=== PATIENT | female | born 1990 | race Caucasian/White ===

== ENCOUNTER 2017-03-29 01:25 | Emergency (ER) | payer SELFPAY ==
--- NOTE | ~2017-03-29 | ER ---
PATIENT'S NAME: SAMMI SANTOS [facility] AGE: 27 Y [address] ROOM: [place] [address] LOCATION: [facility] ADMIT DATE: 03/29/2017 ER/Outpatient Report DISCHARGE DATE: FAMILY PHYSICIAN: Binh Calderon MD ATTENDING PHYSICIAN: Barney Tam Admission date and time are documented in the medical record. I saw the patient at 0140 hours. CHIEF COMPLAINT: Irregular slow heart rate. HISTORY OF PRESENT ILLNESS: This patient is a 27-year-old female who about 35 minutes prior to admission in the emergency room noticed that she had an irregular slow heart rate. She had accompanying nausea, shortness of breath, and generalized weakness. No headache, eyes, ears, nose, throat, neck, or spine pain. No chest pain. Just shortness of breath when she was standing. No abdominal pain. No vomiting or diarrhea. No urinary frequency, urgency, or dysuria. No lightheadedness, dizziness, syncope, or near syncope. No fall or trauma. No recent colds, coughs, flus, fever, chills, or sweats. Does have a history of slight low calcium, is on calcium supplementation, calcium gluconate. She has some mood problems, but no other psych issues. No neuro changes or endocrine problems. HOME MEDICATIONS: See attached medication list. ALLERGIES: SULFA. SOCIAL HISTORY: The patient smokes half-a-pack of cigarettes a day. Occasional intake of alcohol. SIGNIFICANT PAST MEDICAL HISTORY: Hypertension, tobacco abuse, exogenous obesity, bipolar disorder with anxiety, depression, reactive airway disease, and mild hypokalemia. OPERATIONS: Tonsillectomy. REVIEW OF SYSTEMS: All systems reviewed by me are negative with the exception of those discussed in the history of present illness. PATIENT'S NAME: SAMMI SANTOS [facility] AGE: 27 Y [address] ROOM: [place] [address] LOCATION: [facility] ADMIT DATE: 03/29/2017 ER/Outpatient Report DISCHARGE DATE: FAMILY PHYSICIAN: Binh Calderon MD ATTENDING PHYSICIAN: Barney Tam PHYSICAL EXAMINATION: VITAL SIGNS: Temperature 97.7, pulse 90, respirations 20, blood pressure 158/113, and O2 sat on room air is 98%. Jaren Coma Scale was 15. HEAD: Normocephalic. EYES: Extraocular muscles intact. PERRL. EARS, NOSE, THROAT: Clear. Mucous membranes moist. Teeth, jaw intact. NECK: No nuchal rigidity. No thyromegaly or cervical adenopathy. No carotid bruits. No tenderness. SPINE: Nontender. No deformity. LUNGS: Clear. Good airflow. No rales, rhonchi, or wheezes. HEART: Regular. Pulses are palpable. No ectopics. No chest wall or ribcage pain to palpation. ABDOMEN: Obese soft, nondistended, nontender. Good bowel tones. No organomegaly or abnormal mass palpable. EXTREMITIES: No peripheral edema, cyanosis, or deformity. There is no pitting edema. NEURO: The patient has some kind of generalized weakness, but no lateralizing signs. No sensory motor loss. Cranial nerves intact. No jitteriness. No rigidity. No muscle cramping. SKIN: Clear. IMAGING DATA: Chest x-ray shows no acute infiltrate or changes. We will review x-ray with the radiologist. EKG showed sinus rhythm. No acute ST-elevation, ischemic change, or arrhythmia. LABORATORY DATA: CMS was normal except for a slight low potassium at 3.6, slightly elevated chloride at 111, slight low calcium at 7.9. Magnesium 1.9. CPK was 46. [id number] cardiac enzymes were normal. TSH was normal at 3.37. Pro-BNP was normal at 68. White count 14,100, 65 segs, 27 lymphs, 5 monos, 3 eos, hemoglobin is 13.3 with hematocrit 40.4, and platelet count 253,000. PTT is 30, pro-time is 9.6, and INR 0.9. EMERGENCY DEPARTMENT COURSE: I did place a 48-hour Holter heart monitor on the patient. IMPRESSION: 1. Reported irregular slow heart rate, cardiac arrhythmia, not seen on computer typesetter or physical exam here in the emergency department. 2. Mild hypokalemia, etiology uncertain. The patient is already on calcium supplementation. 3. Hypertension. 4. Asthma. 5. Tobacco abuse. PATIENT'S NAME: SAMMI SANTOS [facility] AGE: 27 Y [address] ROOM: [place] [address] LOCATION: [facility] ADMIT DATE: 03/29/2017 ER/Outpatient Report DISCHARGE DATE: FAMILY PHYSICIAN: Binh Calderon MD ATTENDING PHYSICIAN: Barney Tam PLAN: Holter monitor was placed. The patient is discharged home. Continue present home medications and care. Continue calcium supplementation. Fluids as tolerated. Balanced diet. Follow up with personal physician in 5 to 7 days for results of Holter monitor and repeat serum calcium level. Discussion ensued with the patient concerning my findings and recommendations, she understands. MD KATLIN BURDEN/modl /[id number] d: 03/29/17 0355 t: 03/29/17 1803, OUTPATIENT REPORT
[~2017-03-29 01:25] MED LIST: CALAN SR GENER120 MG PO; NICOTINE PATCH1 EAC2 TOP
[2017-03-29 01:58] LABS: BASOPHIL # 0.1 K/uL (0.0-0.2); BASOPHIL % 0.4 %; EOSINOPHIL # 0.4 K/uL (0.0-0.5); EOSINOPHIL % 2.7 %; HEMATOCRIT 40.4 % (33.0-46.0); HEMOGLOBIN 13.3 g/dL (11.0-15.0); IMMATURE GRANULOCYTE # 0.1 K/uL (0.0-0.3); IMMATURE GRANULOCYTE % 0.4 %; LYMPHOCYTE # 3.8 K/uL (0.8-4.0); LYMPHOCYTE % 26.9 %; MCH 27.4 pg (27.0-34.0); MCHC 32.9 gm/dL (32.0-36.5); MCV 83.3 fl (83.0-98.0); MONOCYTE # 0.7 K/uL (0.0-1.0); MONOCYTE % 4.7 %; MPV 10.5 fl (9.4-12.4); NEUTROPHIL # (ANC) 9.2 K/uL (1.8-7.8); NEUTROPHIL % 64.9 %; NRBC % 0 /100WBC (0-0.00); PLATELET COUNT 253 K/uL (150-450); RBC 4.85 M/uL (3.50-5.00); RDW-CV 13.5 % (11.9-14.6); WBC 14.1 K/uL (4.0-11.0)
[2017-03-29 02:07] LABS: INR - (THERAPEUTIC) 0.92 (0.92-1.07); PROTIME 9.6 SECONDS (9.8-11.4); PTT 30 SECONDS (25-32)
[2017-03-29 02:18] LABS: ALBUMIN 2.9 gm/dL (3.5-5.0); ALK PHOS 115 IU/L (33-138); ALT 17 IU/L (12-78); ANION GAP 10.6 (10.0-19.0); AST 12 IU/L (10-40); BLOOD UREA NITROGEN 10 mg/dL (6-24); CALCIUM 7.9 mg/dL (8.5-10.5); CHLORIDE 111 mMol/L (96-110); CO2 23 mMol/L (22-32); CPK 46 IU/L (21-215); CREATININE 0.8 mg/dL (0.5-1.1); MAGNESIUM 1.9 mg/dL (1.8-2.6); POTASSIUM 3.6 mMol/L (3.7-5.1); SODIUM 141 mMol/L (135-145); TOTAL BILIRUBIN 0.2 mg/dL (0.0-1.5); TOTAL PROTEIN 6.8 g/dL (6.0-8.4)
== END 2017-03-29 03:40 | disposition disaster alternative care site (69) ==
LOC: GMED 01:25
PROVIDERS: Emergency Medicine
DX: I49.9 Cardiac arrhythmia, unspecified (principal); E87.6 Hypokalemia; I10 Essential (primary) hypertension; J45.909 Unspecified asthma, uncomplicated; F17.210 Nicotine dependence, cigarettes, uncomplicated; E66.9 Obesity, unspecified; F31.9 Bipolar disorder, unspecified; F41.9 Anxiety disorder, unspecified; Z90.89 Acquired absence of other organs; Z88.2 Allergy status to sulfonamides